=== PATIENT | male | born 1960 | race Caucasian/White ===

== ENCOUNTER 2017-12-29 07:51 | Emergency (ER) | payer OTHER ==
[2017-12-29 08:19] LABS: AGAP ISTAT 17 mmol/L (6-14); BUN ISTAT 13 mg/dL (8-26); CHLORIDE ISTAT 102 mmol/L (98-110); CREATININE ISTAT 0.7 mg/dL (0.5-1.4); GLUCOSE ISTAT 120 mg/dL (70-99); HEMATOCRIT ISTAT 45 % (37-52); HEMOGLOBIN ISTAT 15.3 g/dL (14-18); POTASSIUM ISTAT 3.9 mmol/L (3.5-5.0); SODIUM ISTAT 139 mmol/L (135-145); TOT CO2 ISTAT 25 mmol/L (23-32)
[2017-12-29 08:20] LABS: ADD MAN DIFF? NO
[2017-12-29 08:32] LABS: ANION GAP 10 (6-14); BLOOD UREA NITROGEN 15 mg/dL (8-26); BUN/CREATININE RATIO 17 (6-20); CARBON DIOXIDE 27 mmol/L (21-32); CHLORIDE 104 mmol/L (98-107); CREATININE 0.9 mg/dL (0.7-1.3); GLUCOSE 125 mg/dL (70-99); SODIUM 141 mmol/L (136-145)
[2017-12-29] MEDS: MORPHINE SULFATE 4 MG/ML DISP.SYRIN. IV ×2 (08:32)
[2017-12-29 08:38] LABS: ALBUMIN/GLOBULIN RATIO 1.3 (1.0-1.7); ALK PHOS 62 U/L (46-116); ALT (SGPT) 42 U/L (16-63); AST (SGOT) 22 U/L (15-37); TOTAL BILIRUBIN 0.5 mg/dL (0.2-1.0); TOTAL PROTEIN 7.1 g/dL (6.4-8.2)
[2017-12-29 08:39] LABS: BASO % 1 % (0-3); EOS % 1 % (0-3); HEMATOCRIT 44.7 % (39.0-53.0); HEMOGLOBIN 15.6 g/dL (13.0-17.5); LYMPH # 1.7 x10^3/uL (1.0-4.8); LYMPH % 21 % (24-48); MEAN CORPUSCULAR HEMOGLOBIN 32 pg (25-35); MEAN CORPUSCULAR HGB CONC 35 g/dL (31-37); MEAN CORPUSCULAR VOLUME 92 fL (79-100); MONO # 0.8 x10^3/uL (0.0-1.1); MONO % 10 % (0-9); NEUT # 5.5 x10^3uL (1.8-7.7); NEUT % 68 % (31-73); PLATELET COUNT 171 x10^3/uL (140-400); RED BLOOD COUNT 4.85 x10^6/uL (4.30-5.70); RED CELL DISTRIBUTION WIDTH 13.1 % (11.5-14.5); WHITE BLOOD COUNT 8.1 x10^3/uL (4.0-11.0)
[2017-12-29] MEDS: IOHEXOL 300 MG/ML 100ML VIAL. IV ×2 (08:41)
[2017-12-29] MEDS ORDERED: CONTRAST GIVEN MC ×2 (08:45)
[2017-12-29] MEDS ORDERED: IOHEXOL 300 MG/ML 100ML VIAL. IV ×2 (08:45)
== END 2017-12-29 09:39 | disposition home or self-care (01) ==
LOC: ER 07:51
DX: K57.92 Diverticulitis of intestine, part unspecified, without perforation or abscess without bleeding (principal); M06.9 Rheumatoid arthritis, unspecified
CPT/HCPCS: 36415; 74177; 80047; 80053; 85025; 96374; 99285-25; J2270; Q9967

== ENCOUNTER 2018-07-22 15:52 | Emergency (ER) | payer OTHER ==
[~2018-07-22] VITALS: Ht 182.9 cm; Wt 111.1 kg
[~2018-07-22 15:52] MED LIST: CIPR500T94 PO; HYDR-971 PO; METR500T PO; ONDA4TAB10 SL
[2018-07-22 16:15] VITALS: BP 132/61
--- NOTE | 2018-07-22 16:29 | PHYS DOC ---
Past Medical History Past Medical History: Arthritis, Diverticulitis, Other Additional Past Medical Histor: ostial and rheumatoid arthritis Past Surgical History: Hip Replacement, Knee Replacement, Other Additional Past Surgical Histo: pelvis fx, exlap, R hip replacement, L shoulder Alcohol Use: Rarely Drug Use: None Adult General Chief Complaint Chief Complaint: ELBOW PROBLEM HPI HPI Patient is a 58 year old male who presents with a swelling to his right elbow. The patient states that it came up suddenly yesterday. He denies any injury to the extremity. He states it is not painful. The patient does take prednisone for arthritis daily. He denies fever or other areas of pain or swelling. Review of Systems Review of Systems Constitutional: Denies fever or chills [] Respiratory: Denies cough or shortness of breath [] Cardiovascular: No additional information not addressed in HPI [] GI: Denies abdominal pain, nausea, vomiting, bloody stools or diarrhea [] : Denies dysuria or hematuria [] Musculoskeletal: See history of present illness Integument: Denies rash or skin lesions [] Neurologic: Denies headache, focal weakness or sensory changes [] Endocrine: Denies polyuria or polydipsia [] All other systems were reviewed and found to be within normal limits, except as documented in this note. Allergies Allergies Allergies Coded Allergies Type Severity Reaction Last Updated Verified No Known Drug Allergies 12/29/17 No Physical Exam Physical Exam Constitutional: Well developed, well nourished, no acute distress, non-toxic appearance. [] Cardiovascular:Heart rate regular rhythm, no murmur [] Lungs & Thorax: Bilateral breath sounds clear to auscultation [] Skin: Warm, dry, no erythema, no rash. [] Back: No tenderness, no CVA tenderness. [] Extremities: No tenderness, no cyanosis, no clubbing, ROM intact, flesh-colored swelling to right elbow with no calor or erythema, consistent with olecranon bursitis Neurologic: Alert and oriented X 3, normal motor function, normal sensory function, no focal deficits noted. [] Psychologic: Affect normal, judgement normal, mood normal. [] Current Patient Data Vital Signs Vital Signs Date Time Temp Pulse Resp B/P (MAP) Pulse Ox O2 Delivery O2 Flow Rate FiO2 07/22/18 16:15 99.3 87 17 132/61 (84) 96 Room Air 99.3 EKG EKG [] Radiology/Procedures Radiology/Procedures [] Course & Med Decision Making Course & Med Decision Making Pertinent Labs and Imaging studies reviewed. (See chart for details) [] Masoud Disclaimer Dragon Disclaimer This electronic medical record was generated, in whole or in part, using a voice recognition dictation system. Departure Departure Impression: Primary Impression: Olecranon bursitis Disposition: HOME, SELF-CARE Condition: STABLE Referrals: UNKNOWN PCP NAME (PCP) Patient Instructions: Olecranon Bursitis Additional Instructions: Due to take your prednisone as the anti-inflammatory effect will help resolve your bursitis. Follow-up with your primary care provider if your condition worsens or return to the emergency department. ANKUR BRASHER APRN Jul 22, 2018 16:29
== END 2018-07-22 16:49 | disposition home or self-care (01) ==
LOC: ER 15:52
DX: M70.21 Olecranon bursitis, right elbow (principal); Y93.89 Activity, other specified; M06.9 Rheumatoid arthritis, unspecified
CPT/HCPCS: 99281

== ENCOUNTER 2018-10-29 10:27 | Emergency (ER) | payer OTHER ==
[~2018-10-29] VITALS: Ht 182.9 cm; Wt 106.6 kg
[~2018-10-29 10:27] MED LIST changes: +HYDR-3164 PO; -HYDR-971 PO
[2018-10-29] MEDS ORDERED: CYCL5TAB PO (11:00)
--- NOTE | 2018-10-29 11:00 | PHYS DOC ---
Past Medical History Past Medical History: Arthritis, Diverticulitis, Other Additional Past Medical Histor: osteo and rheumatoid arthritis Past Surgical History: Hip Replacement, Knee Replacement, Other Additional Past Surgical Histo: pelvis fx, exlap, R hip replacement, L shoulder Alcohol Use: Rarely Drug Use: None Adult General Chief Complaint Chief Complaint: BACK PAIN - NO INJURY HPI HPI Patient is a 58 year old male who presents with complaints of chronic lumbar back pain with radiculopathy into his right hip and leg worsening since Wednesday. Has history of R hip replacement, was seen by his PCP on Wednesday of last week. X-ray imaging of his hip was negative at that point. Saw Orthopedic Dr at [facility] in [place] on that prescribed him Percocet and Gabapentin, neither of which have helped. Pain is worse when sitting, somewhat better when he is laying down or standing. Has had multiple adjustments with chiropractor which seems to help his pain for a day and then it returns. Denies loss of bowel or bladder, numbness, tingling, difficulty ambulating, recent injury or lifting or moving heavy objects. He is requesting MRI. Takes prednisone daily for arthritis. Review of Systems Review of Systems Constitutional: Denies fever or chills [] Eyes: Denies change in visual acuity, redness, or eye pain [] HENT: Denies nasal congestion or sore throat [] Respiratory: Denies cough or shortness of breath [] Cardiovascular: No additional information not addressed in HPI [] GI: Denies abdominal pain, nausea, vomiting, bloody stools or diarrhea [] : Denies dysuria or hematuria [] Musculoskeletal: Denies joint pain [] Integument: Denies rash or skin lesions [] Neurologic: Denies headache, focal weakness or sensory changes [] Endocrine: Denies polyuria or polydipsia [] All other systems were reviewed and found to be within normal limits, except as documented in this note. Allergies Allergies Allergies Coded Allergies Type Severity Reaction Last Updated Verified No Known Drug Allergies 12/29/17 No Physical Exam Physical Exam Constitutional: Well developed, well nourished, no acute distress, non-toxic appearance. [] HENT: Normocephalic, atraumatic, bilateral external ears normal, oropharynx moist, no oral exudates, nose normal. [] Eyes: PERRLA, EOMI, conjunctiva normal, no discharge. [] Neck: Normal range of motion, no tenderness, supple, no stridor. [] Cardiovascular:Heart rate regular rhythm, no murmur [] Lungs & Thorax: Bilateral breath sounds clear to auscultation [] Abdomen: Bowel sounds normal, soft, no tenderness, no masses, no pulsatile masses. [] Skin: Warm, dry, no erythema, no rash. [] Back: mild lumbar tenderness upon palpation, No step-offs or deformity noted, no CVA tenderness. [] Extremities: No tenderness, no cyanosis, no clubbing, ROM intact, no edema. [] Neurologic: Alert and oriented X 3, normal motor function, normal sensory function, no focal deficits noted. [] Psychologic: Affect normal, judgement normal, mood normal. [] EKG EKG [] Radiology/Procedures Radiology/Procedures [facility] [address] [place] [address] IMAGING REPORT Signed PATIENT: CARMELO CRUZ ACCOUNT: [id number] : 1960 LOCATION: ER AGE: 58 SEX: M EXAM STATUS: PRE ER ORD. PHYSICIAN: SIMI VIRK DO REASON: lumbar back pain, radiculopathy PROCEDURE: LUMBAR SPINE MIN 4V Indication: Lower back pain, and colopathy TECHNIQUE: 4 views of the lumbar spine COMPARISON: None FINDINGS: There are 5 lumbar type vertebral bodies. No compression deformities. Mild intervertebral disc space narrowing seen at L4 S1. No significant facet arthropathy. SI joints within normal limits. Status post total right hip arthroplasty. IMPRESSION: Mild L5-S1 degenerative disc disease with associated facet arthropathy. Electronically signed by: Colin Tony DO (10/29/2018 11:44 AM) [facility] [place] DICTATED and SIGNED BY: COLIN TONY DO DATE: 10/29/18 1143 [] Course & Med Decision Making Course & Med Decision Making Pertinent Labs and Imaging studies reviewed. (See chart for details) Extensively spoke with pt and regarding treatment for chronic back pain. Pt has not had x-ray imaging of lumbar spine which he was offered from the ER. Pt is requesting MRI however as discussed MRI is not readily available from the ER and he would need to follow-up with his orthopedic dr or PCP to obtain. He states understanding and would like to proceed with x-ray imaging. He will keep his follow up appt with his PCP on 11/03. Masoud Disclaimer Masoud Disclaimer This electronic medical record was generated, in whole or in part, using a voice recognition dictation system. Departure Departure Impression: Primary Impression: Lumbar back pain with radiculopathy affecting right lower extremity Disposition: HOME, SELF-CARE Condition: STABLE Referrals: UNKNOWN PCP NAME (PCP) Patient Instructions: Back Pain, Adult, [id number], Chronic Back Pain Additional Instructions: Keep your appointment on 11/03 with PCP to discuss ordering MRI Continue taking Percocet and Gabapentin as directed No lifting, moving, pushing or pulling heavy objects Return if symptoms worsen Scripts Cyclobenzaprine Hcl (CYCLOBENZAPRINE HCL) 5 Mg Tablet 1 TAB PO TID PRN for MUSCLE SPASMS, #30 TAB Prov: PALOMA ROWAN NP 10/29/18 PALOMA ROWAN NP Oct 29, 2018 11:00
[2018-10-29 11:40] VITALS: BP 131/75
--- NOTE | 2018-10-29 11:48 | RAD ---
Indication: Lower back pain, and colopathy TECHNIQUE: 4 views of the lumbar spine COMPARISON: None FINDINGS: There are 5 lumbar type vertebral bodies. No compression deformities. Mild intervertebral disc space narrowing seen at L4 S1. No significant facet arthropathy. SI joints within normal limits. Status post total right hip arthroplasty. IMPRESSION: Mild L5-S1 degenerative disc disease with associated facet arthropathy. Electronically signed by: Colin Tony DO (10/29/2018 11:44 AM) [facility]
== END 2018-10-29 12:00 | disposition home or self-care (01) ==
LOC: ER 10:27
DX: M51.17 Intervertebral disc disorders with radiculopathy, lumbosacral region (principal); G89.29 Other chronic pain; M25.551 Pain in right hip; M12.88 Other specific arthropathies, not elsewhere classified, other specified site; M06.9 Rheumatoid arthritis, unspecified; Z96.641 Presence of right artificial hip joint; Z96.659 Presence of unspecified artificial knee joint
CPT/HCPCS: 72110; 99283

== ENCOUNTER → 2018-11-14 | Outpatient (CLI) | payer OTHER ==
[2018-10-29 11:40] VITALS: BP 131/75
[~2018-11-14] MED LIST changes: +CYCL5TAB PO
--- NOTE | 2018-11-14 12:53 | KCIC ---
MRI Lumbar Spine without contrast History: Low back pain, pain for 3 weeks, bilateral radiculopathy, right leg numbness Technique: Multiplanar, multi sequential noncontrast MR imaging was performed of the lumbar spine. Comparison: None other than lumbar radiographs on October 29, 2018 Findings: Lumbar vertebral body stature is overall maintained, small Schmorl's nodes superiorly. There is grade 1 anterior spondylolisthesis L3-4 and L4-5, negligible posterior subluxation L5 relative S1. The conus terminates at L1. There is moderate to severe degenerative disc disease at L5-S1, mild L5-S1 endplate edema likely reactive/degenerative in etiology. There is mild degenerative disc disease at L4-5, mild disc desiccation at more superior levels. L1-L2: This level was not included on the axial images. There is negligible disc osteophyte complex. There is facet degenerative change on the left. There is very mild posterior narrowing of the left neural foramen. Right neural foramen and spinal canal are adequate. L2-L3: There is mild buckling of the ligamentum flavum. There is negligible disc osteophyte complex. Spinal canal and neural foramina are adequate. L3-L4: There is mild buckling of the ligamentum flavum and prominence of posterior epidural fat. Spinal canal and neural foramina are adequate. L4-L5: There is [id number] facet degenerative change and minimal buckling of the ligamentum flavum. There is mild prominence of posterior epidural fat. There is minimal partial uncovering of the posterior aspect of the disc due to spondylolisthesis. Spinal canal is adequate. Neural foramina are adequate. L5-S1: There is extrusion/sequestration extending below the intervertebral disc space in the right lateral recess estimated about 8 to 9 mm transverse by 5 mm AP by about 8 to 9 mm CC. There is contact of the descending right S1 nerve root with mild displacement posteriorly, overall mild right lateral recess stenosis. Neural foramina are overall adequate. Impression: 1. There is disc extrusion/sequestration extending below the L5-S1 intervertebral disc space in the right lateral recess with contact and mild posterior displacement of the descending right S1 nerve root, overall mild right lateral recess stenosis. There is moderate to severe degenerative disc disease at L5-S1. There is multilevel mild abnormal alignment as stated, multilevel facet degenerative change. Electronically signed by: Emeterio Draper MD (11/14/2018 12:49 PM) [facility]
== END | disposition home or self-care (01) ==
LOC: KCIC MRI 11:36
PROVIDERS: ATTEND Family Medicine
DX: M51.37 Other intervertebral disc degeneration, lumbosacral region (principal); M48.07 Spinal stenosis, lumbosacral region; M43.16 Spondylolisthesis, lumbar region; M47.896 Other spondylosis, lumbar region; M51.46 Schmorl's nodes, lumbar region
CPT/HCPCS: 72148

== ENCOUNTER 2019-05-20 05:39 | Emergency (ER) | payer OTHER ==
[~2019-05-20] VITALS: Ht 180.3 cm; Wt 106.6 kg
[2019-05-20] MEDS ORDERED: IV NORMAL SALINE 1000ML BAG 1,000 ML IV ONE (06:15)
[2019-05-20 06:27] LABS: BASO # 0.1 x10^3/uL (0.0-0.2); BASO % 1 % (0-3); EOS # 0.1 x10^3/uL (0.0-0.7); EOS % 1 % (0-3); HEMATOCRIT 43.4 % (39.0-53.0); HEMOGLOBIN 15.2 g/dL (13.0-17.5); LYMPH # 1.6 x10^3/uL (1.0-4.8); LYMPH % 19 % (24-48); MEAN CORPUSCULAR HEMOGLOBIN 33 pg (25-35); MEAN CORPUSCULAR HGB CONC 35 g/dL (31-37); MEAN CORPUSCULAR VOLUME 93 fL (79-100); MONO # 0.8 x10^3/uL (0.0-1.1); MONO % 10 % (0-9); NEUT # 5.7 x10^3/uL (1.8-7.7); NEUT % 69 % (31-73); PLATELET COUNT 140 x10^3/uL (140-400); RED BLOOD COUNT 4.67 x10^6/uL (4.30-5.70); RED CELL DISTRIBUTION WIDTH 13.5 % (11.5-14.5); WHITE BLOOD COUNT 8.2 x10^3/uL (4.0-11.0)
[2019-05-20 06:33] LABS: CALCIUM 9.5 mg/dL (8.5-10.1); CREATININE 0.9 mg/dL (0.7-1.3); GFR 86.4; POTASSIUM 3.9 mmol/L (3.5-5.1)
[2019-05-20 06:39] LABS: ALBUMIN 3.8 g/dL (3.4-5.0); ALBUMIN/GLOBULIN RATIO 1.1 (1.0-1.7); TOTAL BILIRUBIN 0.4 mg/dL (0.2-1.0); TOTAL PROTEIN 7.4 g/dL (6.4-8.2)
[2019-05-20] MEDS ORDERED: ONDANSETRON PF 4 MG/2 ML VIAL. IV ONE (06:45)
[2019-05-20] MEDS ORDERED: fentaNYL PF VIAL 100 MCG/2 ML VIAL IV ONE (06:45)
[2019-05-20] MEDS ORDERED: CONTRAST GIVEN. MC PRN (07:00)
[2019-05-20] MEDS ORDERED: IOHEXOL 300 MG/ML 100ML VIAL. IV ONE (07:00)
--- NOTE | 2019-05-20 07:06 | PHYS DOC ---
Past Medical History Past Medical History: Arthritis, Diverticulitis, Other Additional Past Medical Histor: osteo and rheumatoid arthritis Past Surgical History: Hip Replacement, Knee Replacement, Other Additional Past Surgical Histo: pelvis fx, exlap, R hip replacement, L shoulder Alcohol Use: Rarely Drug Use: None Adult General Chief Complaint Chief Complaint: ABDOMINAL PAIN HPI HPI Patient is a 59 year old male who presents with complaining of abdominal pain. Patient complaining of intermittent episodes of lower and left lower quadrant abdominal pain for one month that getting constant and worse since last night as a sharp pain with radiation to his back. Patient complaining of episodes of cramping pain during constant pain and rated his pain 9/10. Patient denies constipation and diarrhea, nausea and vomiting, fever and chills, melena. Patient states he had history of diverticulitis in 1999 1849 same abdominal pain. Review of Systems Review of Systems Constitutional: Denies fever or chills [] Eyes: Denies change in visual acuity, redness, or eye pain [] HENT: Denies nasal congestion or sore throat [] Respiratory: Denies cough or shortness of breath [] Cardiovascular: No additional information not addressed in HPI [] GI: Reports abdominal pain, denies nausea, vomiting, bloody stools or diarrhea [] : Denies dysuria or hematuria [] Musculoskeletal: Denies back pain or joint pain [] Integument: Denies rash or skin lesions [] Neurologic: Denies headache, focal weakness or sensory changes [] Endocrine: Denies polyuria or polydipsia [] All other systems were reviewed and found to be within normal limits, except as documented in this note. Current Medications Current Medications Current Medications Medications (Trade) Dose Ordered Sig/Ross Start Time Stop Time Status Last Admin Dose Admin Ciprofloxacin (Cipro) 500 mg 1X ONCE 05/20/19 08:30 05/20/19 08:31 DC 05/20/19 08:48 500 MG Fentanyl Citrate (Fentanyl 2ml Vial) 50 mcg 1X ONCE 05/20/19 06:45 05/20/19 06:46 DC 05/20/19 06:42 50 MCG Info (CONTRAST GIVEN -- Rx MONITORING) 1 each PRN DAILY PRN 05/20/19 07:00 05/22/19 06:59 Iohexol (Omnipaque 300 Mg/ml) 75 ml 1X ONCE 05/20/19 07:00 05/20/19 07:01 DC 05/20/19 07:20 75 ML Metronidazole (Flagyl) 500 mg 1X ONCE 05/20/19 08:30 05/20/19 08:31 DC 05/20/19 08:48 500 MG Ondansetron HCl (Zofran) 4 mg 1X ONCE 05/20/19 06:45 05/20/19 06:46 DC 05/20/19 06:42 4 MG Sodium Chloride 1,000 ml @ 1,000 mls/hr 1X ONCE 05/20/19 06:15 05/20/19 07:14 DC 05/20/19 06:20 1,000 MLS/HR Allergies Allergies Allergies Coded Allergies Type Severity Reaction Last Updated Verified No Known Drug Allergies 12/29/17 No Physical Exam Physical Exam Constitutional: Well developed, well nourished, mild distress, non-toxic appearance. [] HENT: Normocephalic, atraumatic, oropharynx moist. Eyes: PERRLA, EOMI, conjunctiva normal, no discharge. [] Neck: Normal range of motion, no tenderness, supple, no stridor. [] Cardiovascular:Heart rate regular rhythm, no murmur [] Lungs & Thorax: Bilateral breath sounds clear to auscultation [] Abdomen: Bowel sounds normal, soft, suprapubic and left lower quadrant guarding, no tenderness, no masses, no pulsatile masses. [] Skin: Warm, dry, no erythema, no rash. [] Back: No tenderness, no CVA tenderness. [] Extremities: No tenderness, no cyanosis, no clubbing, ROM intact, no edema. [] Neurologic: Alert and oriented X 3, normal motor function, normal sensory function, no focal deficits noted. [] Psychologic: Affect normal, judgement normal, mood normal. [] Current Patient Data Vital Signs Vital Signs Date Time Temp Pulse Resp B/P (MAP) Pulse Ox O2 Delivery O2 Flow Rate FiO2 05/20/19 08:48 131/85 (100) 05/20/19 08:15 72 15 95 Room Air 05/20/19 05:40 98.2 98.2 Lab Values Laboratory Tests Test 05/20/19 05:58 White Blood Count 8.2 x10^3/uL (4.0-11.0) Red Blood Count 4.67 x10^6/uL (4.30-5.70) Hemoglobin 15.2 g/dL (13.0-17.5) Hematocrit 43.4 % (39.0-53.0) Mean Corpuscular Volume 93 fL (79-100) Mean Corpuscular Hemoglobin 33 pg (25-35) Mean Corpuscular Hemoglobin Concent 35 g/dL (31-37) Red Cell Distribution Width 13.5 % (11.5-14.5) Platelet Count 140 x10^3/uL (140-400) Neutrophils (%) (Auto) 69 % (31-73) Lymphocytes (%) (Auto) 19 % (24-48) L Monocytes (%) (Auto) 10 % (0-9) H Eosinophils (%) (Auto) 1 % (0-3) Basophils (%) (Auto) 1 % (0-3) Neutrophils # (Auto) 5.7 x10^3/uL (1.8-7.7) Lymphocytes # (Auto) 1.6 x10^3/uL (1.0-4.8) Monocytes # (Auto) 0.8 x10^3/uL (0.0-1.1) Eosinophils # (Auto) 0.1 x10^3/uL (0.0-0.7) Basophils # (Auto) 0.1 x10^3/uL (0.0-0.2) Prothrombin Time 12.8 SEC (11.7-14.0) Prothrombin Time INR 1.0 (0.8-1.1) PTT 27 SEC (24-38) Sodium Level 142 mmol/L (136-145) Potassium Level 3.9 mmol/L (3.5-5.1) Chloride Level 105 mmol/L (98-107) Carbon Dioxide Level 26 mmol/L (21-32) Anion Gap 11 (6-14) Blood Urea Nitrogen 22 mg/dL (8-26) Creatinine 0.9 mg/dL (0.7-1.3) Estimated GFR (Cockcroft-Gault) 86.4 BUN/Creatinine Ratio 24 (6-20) H Glucose Level 106 mg/dL (70-99) H Calcium Level 9.5 mg/dL (8.5-10.1) Total Bilirubin 0.4 mg/dL (0.2-1.0) Aspartate Amino Transferase (AST) 13 U/L (15-37) L Alanine Aminotransferase (ALT) 32 U/L (16-63) Alkaline Phosphatase 69 U/L (46-116) Total Protein 7.4 g/dL (6.4-8.2) Albumin 3.8 g/dL (3.4-5.0) Albumin/Globulin Ratio 1.1 (1.0-1.7) Lipase 82 U/L (73-393) Laboratory Tests 05/20/19 05:58 Laboratory Tests 05/20/19 05:58 EKG EKG [] Radiology/Procedures Radiology/Procedures [facility] [address] [place], [place] [id number] IMAGING REPORT Signed PATIENT: CARMELO CRUZ ACCOUNT: [id number] : 1960 LOCATION: ER AGE: 59 SEX: M EXAM STATUS: REG ER ORD. PHYSICIAN: MICHAEL NEGRETE MD REASON: left lower abdominal pain PROCEDURE: CT ABD PELV W/ IV CONTRST ONLY CT study of the abdomen and pelvis with contrast Clinical indications: Left lower quadrant abdominal pain. COMPARISON: December 29, 2017. TECHNIQUE: After IV infusion of 75 cc of Omnipaque 300, helical CT scanning of the abdomen and pelvis performed. GI contrast was not administered. This may decrease the sensitivity to detect GI tract pathology. PQRS compliance Statement One or more of the following individualized dose reduction techniques were utilized for this study: 1. Automated exposure control 2. Adjustment of the mA and/or kV according to patient size 3. Use of iterative reconstruction technique COMPARISON: December 29, 2017. FINDINGS: The liver and spleen and pancreas and gallbladder are normal. No extrahepatic biliary ductal dilatation is seen. No adrenal mass is evident. Both kidneys are normal without hydronephrosis or hydroureter. No focal aneurysmal dilatation of the abdominal aorta is seen. No enlarged abdominal or pelvic lymphadenopathy is evident. Urinary bladder wall is smooth. Colonic diverticulosis is seen. There is focal wall thickening with moderate pericolonic inflammatory change involving the distal descending colon extending slightly into the proximal sigmoid colon consistent with diverticulitis. No abscess or free fluid or free air is evident. No obstructive bowel pattern is seen. No lung base consolidation is evident. No lytic process is seen. IMPRESSION: Moderate diverticulitis of the distal descending colon and proximal sigmoid colon. No abscess or free air or bowel obstruction is evident. Similar finding was seen on July 29, 2018 and therefore this is a recurrent finding. Recommend colonoscopy after completion of antibiotic therapy if this has not been performed recently to exclude a possibility of underlying neoplasm. Electronically signed by: Gabriela Jeronimo MD (05/20/2019 8:14 AM) [facility] DICTATED and SIGNED BY: GABRIELA JERONIMO MD DATE: 05/20/19813 Course & Med Decision Making Course & Med Decision Making Pertinent Labs and Imaging studies reviewed. (See chart for details) Evaluation of patient in ER showed 59-year-old male patient with complaining of intermittent episodes of lower abdominal pain that getting constant since last night. Patient had guarding of left lower quadrant. Labs was unremarkable without leukocytosis or electrolyte problem or sign of dehydration. CT of abdomen and pelvis showed moderate diverticulitis without abscess or perforation. Patient had the same episode in December 2017 and treated as outpatient and wants to try outpatient treatment. Patient treated with Flagyl and Cipro in ER. She had blood pressure of 197/111 at arrival to ER without history of hypertension. Blood pressure improved with changing the blood pressure cough to 150 over 80s and patient was advised to record his blood pressure and follow up with his primary care physician regarding possible hypertension. I've spoken with the patient and/or caregivers. I've explained the patient's condition, diagnosis and treatment plan based on information available to me at this time. I've answered the patient's and/or caregivers questions and addressed any concerns. The patient and/or caregivers have a good understanding the tez alatorre's diagnosis, condition and treatment plan as can be expected at this point. Vital signs have been stabilized. The patient's condition is stable for discharge from the emergency department. The patient will pursue further outpatient evaluation with her primary care provider or other designated consulting physician as outlined in the discharge instructions. Patient and/or caregivers are agreeable to this plan of care and follow-up instructions have been explained in detail. The patient and/or caregivers have received these instructions in written format and expressed understanding of these discharge instructions. The patient and her caregivers are aware that if any significant change in condition or worsening of symptoms should prompt him to immediately return to this of the closest emergency department. If an emergent department is not readily available I would encourage him to call 911. Masoud Disclaimer Dragon Disclaimer This electronic medical record was generated, in whole or in part, using a voice recognition dictation system. Departure Departure Impression: Primary Impression: Acute diverticulitis Additional Impression: Elevated blood pressure reading without diagnosis of hypertension Disposition: HOME, SELF-CARE Condition: IMPROVED Referrals: UNKNOWN PCP NAME (PCP) Patient Instructions: Diverticulitis, Form - Blood Pressure Record Sheet, How to Take Your Blood Pressure, [id number] Additional Instructions: Drink plenty of liquids Follow-up with your primary care physician in 2-3 days Return to ER if not getting better Take liquid diet for the next 2 days Scripts Ondansetron Hcl (ZOFRAN) 4 Mg Tablet 1 TAB PO PRN Q6-8HRS for nausea, #12 TAB Prov: MICHAEL NEGRETE MD 05/20/19 Hydrocodone/Apap 5-325 (NORCO 5-325 TABLET) 1 Each Tablet 1-2 TAB PO Q4-6HRS for pain, #14 TAB Prov: MICHAEL NEGRETE MD 05/20/19 Ciprofloxacin Hcl (CIPRO) 500 Mg Tablet 1 TAB PO Q12HR, #14 TAB Prov: MICHAEL NEGRETE MD 05/20/19 Metronidazole (FLAGYL) 500 Mg Tablet 1 TAB PO Q8HRS, #21 TAB Prov: MICHAEL NEGRETE MD 05/20/19 Problem Qualifiers MICHAEL NEGRETE MD May 20, 2019 07:06
[2019-05-20 07:10] LABS: PROTHROMBIN TIME PATIENT 12.8 SEC (11.7-14.0)
--- NOTE | 2019-05-20 08:16 | RAD ---
CT study of the abdomen and pelvis with contrast Clinical indications: Left lower quadrant abdominal pain. COMPARISON: December 29, 2017. TECHNIQUE: After IV infusion of 75 cc of Omnipaque 300, helical CT scanning of the abdomen and pelvis performed. GI contrast was not administered. This may decrease the sensitivity to detect GI tract pathology. PQRS compliance Statement One or more of the following individualized dose reduction techniques were utilized for this study: 1. Automated exposure control 2. Adjustment of the mA and/or kV according to patient size 3. Use of iterative reconstruction technique COMPARISON: December 29, 2017. FINDINGS: The liver and spleen and pancreas and gallbladder are normal. No extrahepatic biliary ductal dilatation is seen. No adrenal mass is evident. Both kidneys are normal without hydronephrosis or hydroureter. No focal aneurysmal dilatation of the abdominal aorta is seen. No enlarged abdominal or pelvic lymphadenopathy is evident. Urinary bladder wall is smooth. Colonic diverticulosis is seen. There is focal wall thickening with moderate pericolonic inflammatory change involving the distal descending colon extending slightly into the proximal sigmoid colon consistent with diverticulitis. No abscess or free fluid or free air is evident. No obstructive bowel pattern is seen. No lung base consolidation is evident. No lytic process is seen. IMPRESSION: Moderate diverticulitis of the distal descending colon and proximal sigmoid colon. No abscess or free air or bowel obstruction is evident. Similar finding was seen on July 29, 2018 and therefore this is a recurrent finding. Recommend colonoscopy after completion of antibiotic therapy if this has not been performed recently to exclude a possibility of underlying neoplasm. Electronically signed by: Avila Jeronimo MD (05/20/2019 8:14 AM) [facility]
[2019-05-20] MEDS ORDERED: metroNIDAZOLE 500 MG TABLET PO ONE (08:30)
[2019-05-20] MEDS ORDERED: CIPROFLOXACIN HCL 250 MG TABLET. PO ONE (08:30)
[2019-05-20] MEDS ORDERED: HYDR-3164 PO (08:36)
[2019-05-20] MEDS ORDERED: METR500T PO (08:36)
[2019-05-20] MEDS ORDERED: ONDA4TAB7 PO (08:36)
[2019-05-20] MEDS ORDERED: CIPR500T94 PO (08:36)
[2019-05-20 08:48] VITALS: BP 131/85
== END 2019-05-20 08:52 | disposition home or self-care (01) ==
LOC: ER 05:39
DX: K57.92 Diverticulitis of intestine, part unspecified, without perforation or abscess without bleeding (principal); R03.0 Elevated blood-pressure reading, without diagnosis of hypertension
CPT/HCPCS: 36415; 74177; 80053; 83690; 85025; 85610; 85730; 96374; 96375; 99285; J2405; J3010; J7030; Q9967

== ENCOUNTER 2019-08-09 05:44 | Day surgery (SDC) | payer OTHER ==
[~2019-08-09] VITALS: Ht 182.9 cm; Wt 95.3 kg
[~2019-08-09 05:44] MED LIST changes: +CELE200C PO; +METH2.5T PO; +MULT1TAB52 PO; +ONDA4TAB7 PO; +PRED2.5T PO; +TRAZ-118 PO
[2019-08-09] MEDS ORDERED: FOLI1TAB16 PO (06:35)
[2019-08-09] MEDS: IV RINGERS,LACTATED 1000ML 1,000 ML IV SCH ×2 (06:36→09:35)
[2019-08-09] MEDS ORDERED: PROCHLORPERAZINE 10 MG/2 ML VIAL. IV PRN (07:00)
[2019-08-09] MEDS ORDERED: LIDOCAINE 1% PF 2 ML VIAL. ID PRN (07:00)
[2019-08-09] MEDS ORDERED: ONDANSETRON PF 4 MG/2 ML VIAL. IV PRN (07:00)
[2019-08-09] MEDS ORDERED: fentaNYL PF VIAL 100 MCG/2 ML VIAL IV PRN ×2 (07:00)
[2019-08-09] MEDS ORDERED: HYDROmorphone 2 MG/ML VIAL IV PRN (07:00)
[2019-08-09] MEDS ORDERED: MORPHINE SULFATE 2 MG/ML VIAL. IV PRN (07:00)
--- NOTE | 2019-08-09 07:05 | DISCH ---
DISCHARGE INSTRUCTIONS Condition on Discharge Condition on Discharge: Stable Activity After Discharge Activity Instructions for Disc: Other, see below Other activity instructions: arm to remain in sling Bathing Instructions: Shower-keep dressing dry Weight Bearing Status after Di: Non weight bearing Diet after Discharge Diet after Discharge: Regular Wound Incision Care Wound/Incision Care: Ice to area for comfort, Keep wound/cast CDI, Change dressing Other wound/incision instructi: ok to change in 2 days Contacting the DRPiero after DC Call your doctor for: Concerns you may have Follow-Up Follow up with: Nathalie in 2 wks BRENDA GREENBERG II, MD Aug 09, 2019 07:05
[2019-08-09] MEDS ORDERED: ROPIVacaine 0.5% PF 20 ML VIAL. ONE (07:06)
[2019-08-09] MEDS ORDERED: MIDAZOLAM HCL/PF 2 MG/2 ML VIAL. ONE (07:06)
[2019-08-09] MEDS ORDERED: LIDOCAINE 1% 20 ML VIAL. ONE (07:12)
[2019-08-09] MEDS ORDERED: EPINEPHrine VIAL 30 MG/30 ML VIAL ONE (07:12)
[2019-08-09] MEDS ORDERED: BUPIVACAINE MPF 0.5% 30 ML VIAL. ONE (07:12)
[2019-08-09] MEDS ORDERED: ROCURONIUM 50 MG/5 ML VIAL. ONE (07:28)
[2019-08-09] MEDS ORDERED: PROPOFOL 20 ML IV ONE (07:28)
[2019-08-09] MEDS ORDERED: LIDOCAINE 2% PF 5 ML VIAL. ONE (07:28)
[2019-08-09] MEDS ORDERED: DEXAMETHASONE SOD PHOS 4 MG/ML VIAL ONE (07:28)
[2019-08-09] MEDS ORDERED: ONDANSETRON PF 4 MG/2 ML VIAL. ONE (07:28)
[2019-08-09] MEDS ORDERED: fentaNYL PF VIAL 100 MCG/2 ML VIAL ONE (07:28)
[2019-08-09] MEDS ORDERED: DOCU-109 PO (08:24)
[2019-08-09] MEDS ORDERED: ONDA8TAB9 PO (08:25)
[2019-08-09] MEDS ORDERED: OXYC1TAB15 PO (08:25)
[2019-08-09] MEDS ORDERED: HYDROCORTISONE SOD SUCC/PF 100 MG/2 ML VIAL. ONE (08:38)
[2019-08-09] MEDS ORDERED: oxyCODONE/APAP 5/325 1 TAB TABLET PO ONE (08:45)
[2019-08-09] MEDS ORDERED: SEVOFLURANE > 120 MINUTES. IH ONE (08:52)
[2019-08-09] MEDS ORDERED: ceFAZolin 2GM PREMIX 2 GM/50 ML BAG IV ONE (09:00)
[2019-08-09] MEDS ORDERED: GLYCOPYRROLATE 1 MG/5 ML VIAL. ONE (09:04)
[2019-08-09] MEDS ORDERED: NEOSTIGMINE METHYLSULFATE 5 MG/5 ML SYRINGE. ONE (09:04)
--- NOTE | 2019-08-09 09:34 | PDOC4 ---
Operative Note Operative Note Date of procedure: 08/09/2019 Surgeon: Sathya Greenberg [employer] Sales Representative: Nish Singh, advanced practice registered nurse Preoperative diagnosis: Right shoulder rotator cuff tear Postoperative diagnosis: Same Procedure performed: Arthroscopic right shoulder rotator cuff repair Anesthesia: Gen. plus regional nerve block Findings: #1 large, retracted, rotator cuff tear involving upper subscapularis, supraspinatus, and infraspinatus #2 near complete biceps rupture #3 degenerative labral fraying #4 fairly unremarkable glenohumeral cartilage Blood loss: 10mL Components inserted: [employer] helacoil anchors x 3, footprint for lateral row fixation Reason for procedure: Patient is a very pleasant gentleman who has had chronic shoulder pain for years. Clinical and radiographic examination, including MRI were consistent with the preoperative diagnosis. Due to the more acute nature of the tear, I discussed surgery with him. Because of his symptoms and dysfunction, we had a discussion of the risks, benefits, alternatives the above surgery and he wished to proceed. Description of procedure: Patient was greeted in the preoperative holding area where the correct extremity was verified and marked. They were taken to the preoperative holding area where the anesthesiology team placed a regional nerve block. The patient was then taken back to the operative suite and antibiotics were started as they were brought back. Once in the operative room, the patient was transferred gently supine to the operating room table after successful induction of a general anesthetic. After this, he was sat up in a beachchair position maintaining his C-spine in neutral position, large pad under his legs, he was secured to the bed. We then prepped and draped his right upper extremity and shoulder girdle in our usual sterile fashion, we conducted our standard pr eoperative timeout. I palpated and marked surface anatomy for my planned portal sites. I then used a spinal needle to localize a posterior superior portal and incised skin in accordance with this. After this, I introduced the blunt arthroscopic trocar into the glenohumeral joint followed by the camera. I used a spinal needle to localize an anterosuperior portal and incised skin in accordance with this. I then introduced my arthroscopic probe and conducted my diagnostic arthroscopy with the above-noted findings. After this, I repositioned the camera into the subacromial space and performed a bursectomy with combination of shaver and electrocautery device. I then identified the rotator cuff tear and I debrided the pathologic tendon and prepared my footprint. The tendon was initially quite immobile, I perform my releases above and below the tendon with the electrocautery device. After this, I debrided the biceps stump and inspected the upper subscapularis which was quite friable and essentially fell apart when I tried to use the grasper to mobilize it. I then placed my 3 helacoil anchors and shuttled limbs through in a simple configuration. I tied these down with arthroscopic knot-tying techniques, using accessory anterolateral posterolateral portals that had created for suture management. After this, I cut one limb from each suture and placed a footprint with 4 limbs through for my lateral row fixation. I cut the remainder of the 2 limbs at the knot. The tear was stable to probing and to gentle rotation of the arm. I then removed all loose bony debris and the excess arthroscopic fluid. I took my final pictures prior to this. After this, all the excess fluid and instrumentation was removed. The portals were closed with simple interrupted 3-0 nylon. Sterile dressing was applied followed by an abduction pillow sling. Patient tolerated surgery well. No complications. All counts correct �2 prior to wound closure. At the conclusion, he was laid supine and transferred gently supine to the recovery room cart and taken to the PACU in a stable and extubated condition. Postoperative plan is discharge him home, nonweightbearing for 6 weeks. We�ll get him started on physical therapy. He will follow up with me in 2 weeks, sooner should a problem arise. SATHYA GREENBERG II, MD Aug 09, 2019 09:34
[2019-08-09 10:23] VITALS: BP 110/69
== END 2019-08-09 11:28 | disposition home or self-care (01) ==
LOC: SURG 05:44
PROVIDERS: ATTEND Orthopaedic Surgery Sports Medicine
PROC: 0RNJ4ZZ Release Right Shoulder Joint, Percutaneous Endoscopic Approach (ICD-10-PCS; principal; 2019-08-09 07:30)
DX: S46.011A Strain of muscle(s) and tendon(s) of the rotator cuff of right shoulder, initial encounter (principal); M19.012 Primary osteoarthritis, left shoulder; M19.011 Primary osteoarthritis, right shoulder; X58.XXXA Exposure to other specified factors, initial encounter; Y93.89 Activity, other specified; Y92.89 Other specified places as the place of occurrence of the external cause; Y99.8 Other external cause status; Z96.652 Presence of left artificial knee joint; Z96.641 Presence of right artificial hip joint; Z98.890 Other specified postprocedural states; Z87.891 Personal history of nicotine dependence; Z79.899 Other long term (current) drug therapy
CPT/HCPCS: 29826; 29827; 36415; 82306; A7015; C1713; C1782; J0171; J0696; J1100; J1720; J2001; J2250; J2405; J2704; J2710; J2795; J3010; J3490

== ENCOUNTER 2019-10-25 07:55 | Emergency (ER) | payer OTHER ==
[~2019-10-25] VITALS: Ht 182.9 cm; Wt 97.5 kg
[~2019-10-25 07:55] MED LIST changes: +DOCU-109 PO; +FOLI1TAB16 PO; +ONDA8TAB9 PO; +OXYC1TAB15 PO
--- NOTE | 2019-10-25 08:31 | PHYS DOC ---
Past Medical History Past Medical History: Arthritis, Diverticulitis, Other Additional Past Medical Histor: osteo and rheumatoid arthritis Past Surgical History: Hip Replacement, Knee Replacement, Other Additional Past Surgical Histo: pelvis fx, exlap, R hip replacement, L shoulder Alcohol Use: Rarely Drug Use: None Adult General Chief Complaint Chief Complaint: DIZZY/LIGHT HEADED HPI HPI Patient is a 59 year old male patient with history of rheumatoid arthritis and diverticulosis who presents with complaint of dizziness. Patient states he woke up at 3:30 to go to the bathroom and felt dizzy and lost his balance and hit the wall without injury to his head. Patient denies headache, blurred vision, nausea, focal neuro deficit. Patient was able to be back to sleep and when he woke up this morning still had dizziness that was milder. Patient denies recent URI, chest pain, fever and chills, tinnitus, previous dizziness. Review of Systems Review of Systems Constitutional: Denies fever or chills [] Eyes: Denies change in visual acuity, redness, or eye pain [] HENT: Denies nasal congestion or sore throat [] Respiratory: Denies cough or shortness of breath [] Cardiovascular: No additional information not addressed in HPI [] GI: Denies abdominal pain, nausea, vomiting, bloody stools or diarrhea [] : Denies dysuria or hematuria [] Musculoskeletal: Denies back pain or joint pain [] Integument: Denies rash or skin lesions [] Neurologic: Denies headache, focal weakness or sensory changes [] Endocrine: Denies polyuria or polydipsia [] All other systems were reviewed and found to be within normal limits, except as documented in this note. Current Medications Current Medications Current Medications Medications (Trade) Dose Ordered Sig/Ross Start Time Stop Time Status Last Admin Dose Admin Ketorolac Tromethamine (Toradol 30mg Vial) 30 mg 1X ONCE 10/25/19 09:30 10/25/19 09:37 DC Meclizine HCl (Antivert) 25 mg 1X ONCE 10/25/19 08:30 10/25/19 08:31 DC 10/25/19 08:53 25 MG Allergies Allergies Allergies Coded Allergies Type Severity Reaction Last Updated Verified No Known Drug Allergies 08/09/19 No Physical Exam Physical Exam Constitutional: Well developed, well nourished, no acute distress, non-toxic appearance. [] HENT: Normocephalic, atraumatic, bilateral external ears normal, oropharynx moist, no oral exudates, nose normal. [] Eyes: PERRLA, EOMI, conjunctiva normal, no discharge. [] Neck: Normal range of motion, no tenderness, supple, no stridor. [] Cardiovascular:Heart rate regular rhythm, no murmur [] Lungs & Thorax: Bilateral breath sounds clear to auscultation [] Abdomen: Bowel sounds normal, soft, no tenderness, no masses, no pulsatile masses. [] Skin: Warm, dry, no erythema, no rash. [] Back: No tenderness, no CVA tenderness. [] Extremities: No tenderness, no cyanosis, no clubbing, ROM intact, no edema. [] Neurologic: Alert and oriented X 3, normal motor function, normal sensory function, no focal deficits noted. [] Psychologic: Affect normal, judgement normal, mood normal. [] Current Patient Data Vital Signs Vital Signs Date Time Temp Pulse Resp B/P (MAP) Pulse Ox O2 Delivery O2 Flow Rate FiO2 10/25/19 10:19 80 16 96 10/25/19 08:00 98.4 115/69 (84) Room Air 98.4 Lab Values Laboratory Tests Test 10/25/19 08:40 White Blood Count 3.5 x10^3/uL (4.0-11.0) L Red Blood Count 4.78 x10^6/uL (4.30-5.70) Hemoglobin 15.1 g/dL (13.0-17.5) Hematocrit 43.7 % (39.0-53.0) Mean Corpuscular Volume 91 fL (79-100) Mean Corpuscular Hemoglobin 32 pg (25-35) Mean Corpuscular Hemoglobin Concent 35 g/dL (31-37) Red Cell Distribution Width 12.2 % (11.5-14.5) Platelet Count 151 x10^3/uL (140-400) Neutrophils (%) (Auto) 51 % (31-73) Lymphocytes (%) (Auto) 34 % (24-48) Monocytes (%) (Auto) 12 % (0-9) H Eosinophils (%) (Auto) 3 % (0-3) Basophils (%) (Auto) 1 % (0-3) Neutrophils # (Auto) 1.8 x10^3/uL (1.8-7.7) Lymphocytes # (Auto) 1.2 x10^3/uL (1.0-4.8) Monocytes # (Auto) 0.4 x10^3/uL (0.0-1.1) Eosinophils # (Auto) 0.1 x10^3/uL (0.0-0.7) Basophils # (Auto) 0.0 x10^3/uL (0.0-0.2) Sodium Level 142 mmol/L (136-145) Potassium Level 4.0 mmol/L (3.5-5.1) Chloride Level 104 mmol/L (98-107) Carbon Dioxide Level 27 mmol/L (21-32) Anion Gap 11 (6-14) Blood Urea Nitrogen 21 mg/dL (8-26) Creatinine 0.8 mg/dL (0.7-1.3) Estimated GFR (Cockcroft-Gault) 98.9 BUN/Creatinine Ratio 26 (6-20) H Glucose Level 94 mg/dL (70-99) Calcium Level 9.1 mg/dL (8.5-10.1) Magnesium Level 1.9 mg/dL (1.8-2.4) Total Bilirubin 0.7 mg/dL (0.2-1.0) Aspartate Amino Transferase (AST) 16 U/L (15-37) Alanine Aminotransferase (ALT) 27 U/L (16-63) Alkaline Phosphatase 65 U/L (46-116) Creatine Kinase 107 U/L (39-308) Troponin I Quantitative < 0.017 ng/mL (0.000-0.055) Total Protein 6.7 g/dL (6.4-8.2) Albumin 4.0 g/dL (3.4-5.0) Albumin/Globulin Ratio 1.5 (1.0-1.7) Laboratory Tests 10/25/19 08:40 Laboratory Tests 10/25/19 08:40 EKG EKG EKG interpreted by me. EKG at showed normal sinus rhythm at rate of 80, abnormal left axis deviation, RVH, inverted T-wave in anteroseptal and inferior leads unchanged from EKG dated 04/10/2013 Radiology/Procedures Radiology/Procedures [] Course & Med Decision Making Course & Med Decision Making Pertinent Labs and Imaging studies reviewed. (See chart for details) Evaluation of patient in ER showed 59-year-old male patient complaining of episodes of dizziness since this morning. Patient had unremarkable physical exam and labs. EKG was unchanged from the previous EKG in 2013.Patient felt better after treatment with meclizine and felt comfortable to go home. Plan discharge patient home with diagnosis of benign positional vertigo. Dragon Disclaimer Dragon Disclaimer This electronic medical record was generated, in whole or in part, using a voice recognition dictation system. Departure Departure Impression: Primary Impression: Benign positional vertigo Additional Impression: Leukopenia Disposition: HOME, SELF-CARE (at 1020) Condition: IMPROVED Referrals: NO PCP (PCP) Patient Instructions: Benign Positional Vertigo Additional Instructions: Drink plenty of liquids Follow-up with your primary care physician in 3-5 days Return to ER if not getting better Scripts Meclizine Hcl (MECLIZINE HCL) 25 Mg Tablet 1 TAB PO TID for dizziness, #20 TAB Prov: MICHAEL NEGRETE MD 10/25/19 Problem Qualifiers Primary Impression: Benign positional vertigo Laterality: unspecified laterality Qualified Codes: H81.10 - Benign paroxysmal vertigo, unspecified ear Additional Impression: Leukopenia Leukopenia type: unspecified Qualified Codes: D72.819 - Decreased white blood cell count, unspecified MICHAEL NEGRETE MD Oct 25, 2019 08:31
[2019-10-25] MEDS: MECLIZINE HCL 12.5 MG TABLET. PO ONE (08:53)
--- NOTE | 2019-10-25 09:00 | EKG ---
[facility] [address] [place] [address] Test Date: 2019-10-25 Test Time: 08:32:18 Pat Name: CARMELO CRUZ Department: Room: Gender: Court Administrator: : [id number] Requested By: MICHAEL NEGRETE Order Number: [id number] Reading MD: Measurements Intervals [place] Rate: 80 P: 28 [place]: 176 QRS: -36 QRSD: 102 T: 17 QT: 368 QTc: 428 Interpretive Statements SINUS RHYTHM ABNORMAL LEFT AXIS DEVIATION R-S TRANSITION ZONE IN V LEADS DISPLACED TO THE LEFT LEFT ANTERIOR FASCICULAR BLOCK RVH WITH REPOLARIZATION ABNORMALITY QRS(T) CONTOUR ABNORMALITY CONSIDER ANTEROSEPTAL MYOCARDIAL DAMAGE ABNORMAL ECG RI6.01 No previous ECG available for comparison
[2019-10-25 09:01] LABS: CALCIUM 9.1 mg/dL (8.5-10.1); CREATININE 0.8 mg/dL (0.7-1.3); GFR 98.9
--- NOTE | 2019-10-25 09:01 | RAD ---
EXAM: Head CT without contrast. HISTORY: Dizziness. TECHNIQUE: Computed tomographic images of the head were obtained without contrast. *One or more of the following individualized dose reduction techniques were utilized for this examination: 1. Automated exposure control. 2. Adjustment of the mA and/or kV according to patient size. 3. Use of iterative reconstruction technique. COMPARISON: None. FINDINGS: There is no acute or subacute extra-axial or intraparenchymal hemorrhage. There is no mass effect or midline shift. There is no hydrocephalus. The joel-white matter differentiation pattern is intact. The visualized portions of the orbits, paranasal sinuses and mastoid air cells are unremarkable. No suspicious calvarial lesion is seen. IMPRESSION: No acute intracranial findings. Electronically signed by: Melissa Naqvi MD (10/25/2019 8:58 AM) [place] [id number]
[2019-10-25 09:02] LABS: BASO % 1 % (0-3); EOS # 0.1 x10^3/uL (0.0-0.7); EOS % 3 % (0-3); HEMATOCRIT 43.7 % (39.0-53.0); HEMOGLOBIN 15.1 g/dL (13.0-17.5); LYMPH # 1.2 x10^3/uL (1.0-4.8); LYMPH % 34 % (24-48); MEAN CORPUSCULAR HEMOGLOBIN 32 pg (25-35); MEAN CORPUSCULAR HGB CONC 35 g/dL (31-37); MEAN CORPUSCULAR VOLUME 91 fL (79-100); MONO # 0.4 x10^3/uL (0.0-1.1); MONO % 12 % (0-9); NEUT # 1.8 x10^3/uL (1.8-7.7); NEUT % 51 % (31-73); PLATELET COUNT 151 x10^3/uL (140-400); RED BLOOD COUNT 4.78 x10^6/uL (4.30-5.70); RED CELL DISTRIBUTION WIDTH 12.2 % (11.5-14.5); WHITE BLOOD COUNT 3.5 x10^3/uL (4.0-11.0)
--- NOTE | 2019-10-25 09:03 | RAD ---
EXAM: Chest, single view. HISTORY: Dizziness. COMPARISON: None. FINDINGS: A frontal view of the chest is obtained. There is no infiltrate, pleural effusion or pneumothorax. The heart is normal in size. IMPRESSION: No acute pulmonary finding. Electronically signed by: Melissa Naqvi MD (10/25/2019 9:00 AM) [place] [id number]
[2019-10-25 09:08] LABS: ALBUMIN/GLOBULIN RATIO 1.5 (1.0-1.7); MAGNESIUM 1.9 mg/dL (1.8-2.4); TOTAL BILIRUBIN 0.7 mg/dL (0.2-1.0); TOTAL PROTEIN 6.7 g/dL (6.4-8.2)
[2019-10-25] MEDS ORDERED: KETOROLAC 30 MG/ML VIAL. IVP ONE (09:30)
[2019-10-25 10:19] VITALS: BP 132/96
[2019-10-25] MEDS ORDERED: MECL25TA3 PO (10:21)
== END 2019-10-25 10:30 | disposition home or self-care (01) ==
LOC: ER 07:55
DX: H81.10 Benign paroxysmal vertigo, unspecified ear (principal); D72.819 Decreased white blood cell count, unspecified
CPT/HCPCS: 36415; 70450; 71045; 80053; 82550; 83735; 84484; 85025; 93005; 99285; J8597